=== PATIENT | female | born 1950 | race Caucasian/White ===

== ENCOUNTER → 2016-11-22 | Outpatient (CLI) | payer OTHER, MEDICARE | LOC: FIMAGING 07:44 | PROVIDERS: ATTEND Family Medicine | DX: Z12.31 Encounter for screening mammogram for malignant neoplasm of breast (principal) | CPT/HCPCS: G0202 ==

== ENCOUNTER → 2017-01-03 | Outpatient (CLI) | payer OTHER, MEDICARE | LOC: BHFA 11:00 | PROVIDERS: ATTEND Internal Medicine Interventional Cardiology | DX: R00.1 Bradycardia, unspecified (principal); E78.00 Pure hypercholesterolemia, unspecified ==

== ENCOUNTER → 2017-11-30 | Outpatient (CLI) | payer OTHER, MEDICARE | LOC: GIMAGING 11:20 | PROVIDERS: ATTEND Family Medicine | DX: M79.671 Pain in right foot (principal) | CPT/HCPCS: 73630-PO ==

== ENCOUNTER 2017-12-27 14:18 | Emergency (ER) | payer OTHER, MEDICARE ==
[2017-12-27 15:56] LABS: PLATELET COUNT 236 10^3/uL (150-400)
[2017-12-27 16:06] LABS: PROTIME(PATIENT) 24.9 SEC (12.0-15.0)
[2017-12-27 16:07] LABS: INR 2.25 (0.83-1.16)
--- NOTE | 2017-12-27 16:40 | EDPHY ---
H & P Stated Complaint: multiple--cooking pickled jalepenos 2 days ago-bilat hand burning resolved, Time Seen by Provider: 12/27/17 14:56 HPI/ROS: Chief complaint: Burning sensation on her hands, headache History of present illness: This is a 67-year-old female who presents to the emergency department multiple complaints. Her initial complaint is burning sensation to her hands. She states she was cooking with jalapeno year was 2 days ago. The burning sensation in her hands developed while cooking with ease. Sensation is been slowly improving but not fully resolved. She also states over the last day she has developed a mild headache to the right back side of her head. She describes a throbbing headache. She is wondering if it is from allergies affecting her ears. He has had similar headaches in the past but never this intense. She denies other potential precipitating factors. She denies alleviating factors. She denies associated signs or symptoms including no fevers, no cold symptoms, no trauma, no weakness or paralysis, no bowel or bladder dysfunction. Review of systems: A 10 point review of systems was obtained and other than described above was negative - Personal History Tetanus Vaccine Date: 2011 - Medical/Surgical History Hx Asthma: No Hx Chronic Respiratory Disease: No Hx Diabetes: No Hx Cardiac Disease: No Hx Renal Disease: No Hx Cirrhosis: No Hx Alcoholism: No Hx HIV/AIDS: No Hx Splenectomy or Spleen Trauma: No Other PMH: factor 5 clotting disorder/ hyst/colitis/hyperlipids/htn/ - Social History Smoking Status: Never smoked - Physical Exam Exam: General Appearance: Alert, nontoxic, easily conversant with me. Eyes: Pupils equal and round no pallor or injection. EOM intact. ENT, Mouth: Tympanic membranes, external auditory canals, external ears and surrounding soft tissue including over the mastoids are unremarkable. Nasopharynx is not injected. There is no rhinorrhea. Oropharynx is not injected. There is no edema. There is no exudate. There is no asymmetry. The uvula is midline. No elevation of the tongue. There is no hoarseness, no drooling, no trismus, no stridor. Respiratory: There are no retractions, lungs are clear to auscultation. Cardiovascular: Regular rate and rhythm. Gastrointestinal: Abdomen is soft and nontender, no masses, bowel sounds normal. Neurological: Alert and oriented x4. Cranial nerves 2-12 grossly intact. Strength and sensation intact and symmetrical. Cerebellar testing intact using finger to nose. Patient is ambulating without difficulty. She has good balance. Skin: Warm and dry, no rashes. Musculoskeletal: Neck is supple nontender. Extremities are symmetrical, full range of motion. Psychiatric: Patient is oriented X 3, there is no agitation. Constitutional: Initial Vital Signs Temperature (C) 36.5 C 12/27/17 14:26 Heart Rate 81 12/27/17 14:26 Respiratory Rate 18 12/27/17 14:26 Blood Pressure 138/86 H 12/27/17 14:26 O2 Sat (%) 98 12/27/17 14:26 O2 Delivery Mode Room Air Allergies/Adverse Reactions: latex Allergy (Verified 04/28/12 12:45) Home Medications: Medication Instructions Recorded Ambien 04/28/12 Bentyl 04/28/12 Cymbalta 04/28/12 Dexalant 04/28/12 Spirinolactone 04/28/12 Cpap 09/14/14 GABAPENTIN 09/14/14 VAGIFEM 09/14/14 Coumadin 12/27/17 Medical Decision Making - Diagnostics Imaging Results: Imaging Impressions Head CT 12/27/17 15:12 Impression: 1. No acute intracranial hemorrhage, mass or explanation for right-sided headache. 2. Minimal atrophy and minimal left maxillary sinus disease. Findings discussed with Emergency Department physician child center assistant, GERRI Colvin on 12/27/2017, 15:35. Imaging: Discussed imaging studies w/ call center receptionist Radiologist ED Course/Re-evaluation: Patient is discussed with my secondary supervising physician Dr. Ti Pablo. Patient presents to the emergency department with primary complaint of burning sensation to her hands that has been going on for the last 2 days since cooking with jalaYoukuos. These symptoms have nearly resolved. She subsequently described a mild headache. Blood studies obtained and unremarkable , she is therapeutic on her Coumadin with an INR of 2.25. Given the use of Coumadin a CT scan of the head was obtained negative. I do not appreciate red flag risk factors for her headache, the headache was not sudden in onset, it is not the worst headache of her life, she has had similar headaches in the past, she has a nonfocal neurologic exam. I discussed pursuing further evaluation including an MRI this evening, she has declined. She is comfortable going home. She will follow up with her primary care doctor next week. Home care is discussed. Strict return precautions are given. The patient voiced understanding and agreement with plan. Differential Diagnosis: Included but not limited to contact ear 10 from work with jalapeno nose, middle ear dysfunction, musculoskeletal pain, intracranial bleed given history of Coumadin use, CVA - Data Points Laboratory Results: Laboratory Results 12/27/17 15:35 12/27/17 15:35 12/27/17 12/27/17 12/27/17 15:35 15:35 15:35 WBC 8.15 10^3/uL 10^3/uL (3.80-9.50) RBC 4.72 10^6/uL 10^6/uL (4.18-5.33) Hgb 14.6 g/dL g/dL (12.6-16.3) Hct 43.0 % % (38.0-47.0) MCV 91.1 fL fL (81.5-99.8) MCH 30.9 pg pg (27.9-34.1) MCHC 34.0 g/dL g/dL (32.4-36.7) RDW 13.6 % % (11.5-15.2) Plt Count 236 10^3/uL 10^3/uL (150-400) MPV 8.9 fL fL (8.7-11.7) Neut % (Auto) 55.8 % % (39.3-74.2) Lymph % (Auto) 31.8 % % (15.0-45.0) [place] % (Auto) 5.5 % % (4.5-13.0) Eos % (Auto) 6.5 % % (0.6-7.6) Baso % (Auto) 0.2 % L % (0.3-1.7) Nucleat RBC Rel Count 0.0 % % (0.0-0.2) Absolute Neuts (auto) 4.54 10^3/uL 10^3/uL (1.70-6.50) Absolute Lymphs (auto) 2.59 10^3/uL 10^3/uL (1.00-3.00) Absolute Monos (auto) 0.45 10^3/uL 10^3/uL (0.30-0.80) Absolute Eos (auto) 0.53 10^3/uL H 10^3/uL (0.03-0.40) Absolute Basos (auto) 0.02 10^3/uL 10^3/uL (0.02-0.10) Absolute Nucleated RBC 0.00 10^3/uL 10^3/uL (0-0.01) Immature Gran % 0.2 % % (0.0-1.1) Immature Gran # 0.02 10^3/uL 10^3/uL (0.00-0.10) PT 24.9 SEC H SEC (12.0-15.0) INR 2.25 H (0.83-1.16) Sodium 140 mEq/L mEq/L (135-145) Potassium 4.3 mEq/L mEq/L (3.3-5.0) Chloride 100 mEq/L mEq/L (97-110) Carbon Dioxide 29 mEq/l mEq/l (22-31) Anion Gap 11 mEq/L mEq/L (8-16) BUN 26 mg/dL H mg/dL (7-23) Creatinine 1.0 mg/dL mg/dL (0.6-1.0) Estimated GFR 55 Glucose 90 mg/dL mg/dL (70-100) Calcium 10.1 mg/dL mg/dL (8.5-10.4) Departure - Departure Disposition: Home, Routine, Self-Care Clinical Impression: Headache Qualifiers: Headache type: unspecified Headache chronicity pattern: acute headache Intractability: not intractable Qualified Code(s): R51 - Headache Condition: Good Instructions: Acute Headache (ED) Additional Instructions: Follow-up with your primary care doctor on Saturday for recheck Your INR was therapeutic at 2.25 If symptoms worsen or new symptoms develop return to the emergency room immediately for recheck Referrals: Kyree Guerra MD [Primary Care Provider] - As per Instructions
[2017-12-27 16:53] VITALS: BP 132/52
== END 2017-12-27 16:53 | disposition home or self-care (01) ==
DX: R51 Headache (principal); R20.8 Other disturbances of skin sensation

== ENCOUNTER 2018-02-28 15:00 | Observation (INO) | payer OTHER, MEDICARE ==
[2018-03-07] MEDS ORDERED: BUPIVACAINE 0.5% 30 ML SDV ONE (09:06)
[2018-03-07] MEDS ORDERED: BUPIVACAINE 0.25% 30 ML SDV ONE (09:06)
[2018-03-07] MEDS ORDERED: EPINEPHrine 1 MG/ML INJ ONE (09:07)
[2018-03-07] MEDS ORDERED: ceFAZolin 2 GM/DEXTROSE 100 ML IV ONE (09:15)
[2018-03-07] MEDS ORDERED: LIDOCAINE 1% 2 ML INJ ID PRN (09:16)
[2018-03-07] MEDS ORDERED: LR 1,000 ML IV ONE (09:16)
[2018-03-07] MEDS ORDERED: MIDAZOLAM 2 MG/2 ML VIAL IVP ONE ×2 (09:20→09:22)
[2018-03-07] MEDS ORDERED: fentaNYL 100 MCG/2 ML INJ IVP ONE (09:20)
--- NOTE | 2018-03-07 09:21 | PDANEPAE ---
ANE History of Present Illness left foot pain ANE Past Medical History - Cardiovascular History Hx Hypertension: Yes Hx Arrhythmias: No Hx Chest Pain: No Hx Coronary Artery / Peripheral Vascular Disease: No Hx CHF / Valvular Disease: No Hx Palpitations: No Cardiovascular History Comment: Hx of DVT r/t clotting disorder. Hx of bradycardia - Pulmonary History Hx COPD: No Hx Asthma/Reactive Airway Disease: Yes Hx Recent Upper Respiratory Infection: No Hx Oxygen in Use at Home: Yes O2 in Use at Home (L/minute): 2L/NC at noc Hx Sleep Apnea: Yes Sleep Apnea Screening Result - Last Documented: Positive Pulmonary History Comment: PABLO +, uses Cpap w/O2. hx asthma, environmental induced - Neurologic History Hx Cerebrovascular Accident: No Hx Seizures: No Hx Dementia: No Neurologic History Comment: gets dizzy easily. L2-3 cyst - Endocrine History Hx Diabetes: Yes Hypothyroid: No Obesity: severe Endocrine History Comment: pre-diabetic - Renal History Hx Renal Disorders: No - Liver History Hx Hepatic Disorders: No - Neurological & Psychiatric Hx Hx Neurological and Psychiatric Disorders: Yes Neurological / Psychiatric History Comment: situational depression in the past - Cancer History Hx Cancer: No Cancer History Comment: hx of pre-cancerous polyps in colon and stomach - Congenital Disorder History Hx Congenital Disorders: Yes Congenital History Comment: Factor V Leiden - chronic coumadin - GI History Hx Gastrointestinal Disorders: Yes Gastrointestinal History Comment: GERD. Hx colitis - Other Health History Other Health History: wears glasses. 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 arthritis - Chronic Pain History Chronic Pain: Yes (back pain, hips, neck) - Surgical History Prior Surgeries: hysterectomy. bladder repair after was nicked during hysterectomy. small bowel resection. tonsillectomy ANE Review of Systems Review of Systems: - Exercise capacity METS (RN): 3 METS ANE Patient History - Allergies Allergies/Adverse Reactions: latex Allergy (Severe, Verified 02/27/18 20:14) Anaphylaxis tramadol Allergy (Verified 02/27/18 16:08) hives, itching - Home Medications Home Medications: Albuterol [Proventil Inhaler HFA (*)] 1 - 2 puffs IH Q4H PRN 02/27/18 [Last Taken 2 Months Ago ~01/05/18] Amitriptyline HCl [Elavil 10 mg (*)] 10 mg PO HS 02/27/18 [Last Taken 1 Day Ago ~03/06/18] Dexlansoprazole [Dexilant] 60 mg PO DAILY 02/27/18 [Last Taken 03/07/18] Estradiol [VAGIFEM] 10 mcg VG TUSA 02/27/18 [Last Taken 1 Week Ago ~02/28/18] Gabapentin [Neurontin 300 MG (*)] 300 mg PO BID PRN 02/27/18 [Last Taken 1 Day Ago ~03/06/18] Gabapentin [Neurontin 300 MG (*)] 600 mg PO HS 02/27/18 [Last Taken 2 Days Ago ~ 03/05/18] Herbals/Supplements -Info Only 1 ea PO DAILY 02/27/18 [Last Taken 1 Week Ago ~] Lisinopril/Hctz 20/12.5MG [Zestoretic/Prinzide 20/12.5MG (*)] 1 ea PO DAILY [Last Taken 2 Days Ago ~03/05/18] Montelukast Sodium [Singulair 10 mg (*)] 10 mg PO DAILY@1800 02/27/18 [Last Taken 1 Day Ago ~03/06/18] Spironolactone [Aldactone 25 MG (*)] 25 mg PO BID 02/27/18 [Last Taken 1 Day Ago ~03/06/18] Warfarin Sodium [Coumadin 5MG (*)] 2.5 mg PO SUMOTUTHFR@16 02/27/18 [Last Taken 02/28/18] Warfarin Sodium [Coumadin 5MG (*)] 5 mg PO WESA@16 02/27/18 [Last Taken 03/01/18 ] diphenhydrAMINE [Benadryl 25 MG (*)] 25 mg PO DAILY PRN 02/27/18 [Last Taken 1 Week Ago ~02/28/18] metFORMIN HCL [Glucophage 500 mg (*)] 500 mg PO BIDMEAL 02/27/18 [Last Taken 1 Day Ago ~03/06/18] Acetaminophen [Tylenol ES 500 mg (*)] 500 - 1,000 mg PO BID 02/28/18 [Last Taken 1 Day Ago ~03/06/18] Acetaminophen [Tylenol ES 500 mg (*)] 500 mg PO BID PRN 02/28/18 [Last Taken 1 Day Ago ~03/06/18] - Smoking Hx Smoking Status: Former smoker - Family Anes Hx Family Hx Anesthesia Complications: none ANE Labs/Vital Signs - Vital Signs Height: 157.48 cm Weight: 100.698 kg ANE Physical Exam - Airway Neck exam: FROM Mallampati Score: Class 2 Mouth exam: normal dental/mouth exam - Pulmonary Pulmonary: no respiratory distress - Cardiovascular Cardiovascular: regular rate and rhythym - ASA Status ASA Status: III ANE Anesthesia Plan Anesthesia Plan: general endotracheal anesthesia Regional Anesthesia: single shot NB (Plan for GA with popliteal nerve block catheter and single shot saphenous block), continuous NB
[2018-03-07] MEDS ORDERED: fentaNYL 100 MCG/2 ML INJ ONE (09:26)
[2018-03-07] MEDS ORDERED: PROPOFOL 200 MG/20 ML VIAL ONE (09:26)
[2018-03-07] MEDS ORDERED: ROCURONIUM 50 MG/5 ML VIAL ONE (09:27)
[2018-03-07] MEDS ORDERED: LIDOCAINE 2% 5 ML SDV ONE (09:28)
[2018-03-07] MEDS ORDERED: ALBUTEROL 60 PUFFS/8 GM MDI IH PRN (09:47)
[2018-03-07] MEDS ORDERED: diphenhydrAMINE 25 MG CAP PO PRN (09:47)
[2018-03-07] MEDS ORDERED: ROPIVACAINE HCL 150 MG/30 ML INJ ONE ×2 (09:47→13:12)
--- NOTE | 2018-03-07 09:47 | PDHPUP ---
History & Physical Update H&P update statement: This history and physical update is based on an assessment of the patient which was completed after admission or registration (within 24 hours), but prior to the surgery/procedure. H&P update: H&P reviewed & patient examined, no change in patient's condition since H&P completed
[2018-03-07 09:52] LABS: INR 1.14 (0.83-1.16); PROTIME(PATIENT) 14.8 SEC (12.0-15.0)
[2018-03-07] MEDS ORDERED: HYDROmorphONE/DILAUDID 2 MG/ML INJ ONE ×2 (10:50→13:31)
[2018-03-07] MEDS ORDERED: ONDANSETRON 4 MG/2 ML VIAL ONE (10:53)
[2018-03-07] MEDS ORDERED: DEXAMETHASONE 4 MG/ML VIAL ONE ×2 (10:53)
[2018-03-07] MEDS ORDERED: ESMOLOL HCL 100 MG/10 ML VIAL IV ONE (12:25)
--- NOTE | 2018-03-07 12:55 | POSTOPPROG ---
Post Op Note Date of Operation: 03/07/18 Surgeon: Saravanan Bob Machine Cell Tuber: uDy Anesthesia: GET(General Endotracheal) Pre-op Diagnosis: L posterior tibial tendonitis Post-op Diagnosis: same Indication: above Procedure: L ankle marcus, beena, berto, fdl transfer Inf/Abcess present in the surg proc area at time of surgery?: No EBL: Minimal
[2018-03-07] MEDS ORDERED: ONDANSETRON 4 MG/2 ML VIAL IVP PRN (12:56)
[2018-03-07] MEDS ORDERED: HYDROmorphONE/DILAUDID 1 MG/ML INJ IVP PRN (12:56)
[2018-03-07] MEDS ORDERED: HYDROCODONE/APAP 5/325 TAB PO PRN (13:41)
[2018-03-07] MEDS ORDERED: METOCLOPRAMIDE 10 MG/2 ML VIAL IVP PRN (13:41)
[2018-03-07] MEDS ORDERED: MEPERIDINE 25 MG/0.5 ML AMP IVP PRN (13:41)
[2018-03-07] MEDS ORDERED: LABETALOL HCL 5 MG/ML 20 ML MDV IVP PRN (13:41)
[2018-03-07] MEDS ORDERED: NALOXONE HCL 0.4 MG/ML INJ IVP PRN (13:41)
[2018-03-07] MEDS ORDERED: HYDROmorphONE/DILAUDID 2 MG/ML INJ IVP PRN (13:41)
[2018-03-07] MEDS ORDERED: LR 500 ML IV PRN (13:41)
--- NOTE | 2018-03-07 13:44 | POSTANESTH ---
Post Anesthetic Evaluation Cardiovascular Status: Normal, Stable Respiratory Status: Normal, Stable Level of Consciousness/Mental Status: Can Participate in Eval Pain Control: Adequate, Prn Tx Ordered (Patient c/o medial ankle pain. Rescue adductor canal block performed in PACU with 15 ml 0.5% Ropivicaine injected. No complications) Nausea/Vomiting Control: Adequate, Prn Tx Ordered Complications Possibly Related to Anesthesia: None Noted
[2018-03-07] MEDS: ROPIVACAINE 0.2% 1,100 MG in PUMP SET 1 EA NB SCH (14:19)
[2018-03-07] MEDS: WARFARIN SODIUM 5 MG TAB PO SCH (17:00)
[2018-03-07] MEDS: oxyCODONE IR 5 MG TAB PO PRN ×2 (17:02→23:21)
[2018-03-07] MEDS: MONTELUKAST SODIUM 10 MG TAB PO SCH (18:17)
[2018-03-07] MEDS: ceFAZolin 2 GM/DEXTROSE 100 ML IV SCH (18:18)
[2018-03-07] MEDS: metFORMIN HCL 500 MG TAB PO SCH (18:18)
[2018-03-07] MEDS: SPIRONOLACTONE 25 MG TAB PO SCH (20:21)
[2018-03-07] MEDS: AMITRIPTYLINE HCL 10 MG TAB PO SCH (20:22)
[2018-03-07] MEDS: GABAPENTIN 300 MG CAP PO SCH (20:22)
--- NOTE | 2018-03-07 20:51 | GOP ---
DATE OF OPERATION: 03/07/2018 SURGEON: Saravanan Bob MD WOOD HANDLER: Jorge Gordillo SA. PREOPERATIVE DIAGNOSIS: Left severe flatfoot deformity, posterior tibial tendinitis, peroneal tendinitis, ankle impingement, gastroc contracture. POSTOPERATIVE DIAGNOSIS: Left severe flatfoot deformity, posterior tibial tendinitis, peroneal tendinitis, ankle impingement, gastroc contracture. PROCEDURE PERFORMED: 1. Left ankle arthroscopy with extensive debridement and anterior bony decompression. 2. Left ankle Waqas procedure, gastrocnemius recession. 3. Left ankle peroneal debridement with debridement of peroneus brevis and peroneus brevis repair with tubularization. 4. Medial displacement calcaneal osteotomy. 5. Debridement of posterior tibial tendon. 6. Flexor digitorum longus tendon transfer. 7. Spring ligament repair. FINDINGS: SPECIMENS: None. ESTIMATED BLOOD LOSS: 5 mL. INDICATIONS: This is a female in significant pain and failed nonoperative treatment with the above diagnosis. We counseled risks and benefits of surgical intervention. We discussed risks of recurrence, infection, nerve injury, complications, nonunion, malunion, continued pain, need for bracing, and she would like to proceed. Informed consent was obtained after all questions were answered. DESCRIPTION OF PROCEDURE: She was marked preoperatively and taken to the operative suite, sterilely prepped and draped in normal fashion. Block had administered per Anesthesia, an indwelling popliteal block and sapheonous block was performed for postop pain control. She was given 2 g Ancef. Time-out was performed, verifying site, side, and location with agreement of the team. After exsanguination, tourniquet was put up to 300 mmHg. We insufflated the joint, and made a medial and lateral portal for the portals were establishedprotecting neurovascular structures. Significant synovitis in the ankle was debrided of the anterior ,medial, lateral, and posterior gutters. I then performed a bony decompression of the anterior ankle. We then made an incision over the calf and dissected down from the gastroc recession to the outer fascia layer of the gastroc musculature to give her more dorsiflexion. I then made an incision over the peroneal tendons. I dissected down to the peroneus longus was in good condition. Her brevis had a longitudinal tear and synovitis, which was debrided. I then debrided the peroneus brevis, then tubularized this with an 0 Vicryl repairing the peroneus brevis. I made an incision over the heel and dissected down to this. I cut this with a sagittal saw and displaced this medially, held this with a guidewire , checked this fluoroscopically, drilled and placed two 5.0 headless compression screws across this, completing the medial displacement calcaneal osteotomy. I then turned my attention medially and made a medial incision over the posterior tibial tendon, isolated this as it was extremely tendinotic and degenerative, and this was removed. I then dissected and found the FDL, cut this distally and harvested the tendon, placed a FiberWire suture in this in a Krackow fashion. I then isolated the sustentaculum of the calcaneus. I isolated this with a guidewire, then I checked fluoroscopically, drilled, tapped , and then placed the swivel lock. I then isolated the entry point on the navicular, checked this with the guidewire, and then used a 5.5 reamer. I then pulled with the limbs of the internal brace to this in the tendon and then tensioned these separately, making sure to achieve good tension of the tendon and leave the internal braces back up. The biotenodesis screws were then selected, and this was placed and held all this into place well. The wounds were irrigated. Final images were taken. The spring ligament was reefed and sewed tighter to complete the spring ligament repair. Thoroughly irrigated this. Closed with 0 Vicryl, 2-0 Vicryl, 3-0 Quill, and Dermabond. She was taken to PACU in stable condition. IMPLANTS: Arthrex internal brace with spring ligament and two 5.0 headless compression screws for the MDCO and a biotenodesis screw 6.5 mm. COMPLICATIONS: None. DRAINS: None. CONDITION: Stable. /[id number]/MODL MTDD
[2018-03-08] MEDS: ceFAZolin 2 GM/DEXTROSE 100 ML IV SCH (03:55)
[2018-03-08] MEDS: GABAPENTIN 300 MG CAP PO PRN (03:59)
[2018-03-08] MEDS: oxyCODONE IR 5 MG TAB PO PRN ×5 (03:59→23:00)
--- NOTE | 2018-03-08 08:04 | PDPAINCON ---
Pain Management Consultation Patient referred by : Paulino - Subjective Pain at rest (/10): 4 Pain is: under control Side effects include: No drowsy, No itchiness, No nausea, No nausea/vomiting Activity: able to ambulate, participating in PT - Objective Technique: continuous peripheral nerve block Site: sciatic Continuous infusion: ropivicaine Catheter site: clean, dry, intact Sensory and motor exam: consistent with block Vital signs: stable - Assessment/Plan Assessment/Plan: pain well-controlled, continue current mgmt Additional comments: POD# 1 s/p left ankle surgery. Indwelling popliteal sciatic catheter running 0.2% ropivacaine at 6ml/hr plus adductor canal block done yesterday. Patient comfortable overall, states she can feel some throbbing pain starting to come on in the anteromedial aspect of the ankle. Taking PO oxycodone. About to participate in PT. Expects d/c home today or tomorrow.
[2018-03-08] MEDS: SPIRONOLACTONE 25 MG TAB PO SCH ×2 (08:13→20:55)
[2018-03-08] MEDS: metFORMIN HCL 500 MG TAB PO SCH ×2 (08:13→17:37)
[2018-03-08] MEDS: LISINOPRIL/HCTZ 20/12.5MG 1 EA TAB PO SCH (08:13)
[2018-03-08] MEDS: ENOXAPARIN 100 MG/ML SYR SC SCH ×2 (08:13→20:55)
[2018-03-08] MEDS: FAMOTIDINE 20 MG TAB PO SCH (08:13)
--- NOTE | 2018-03-08 09:47 | SOAPPROG ---
SOAP Progress Note Assessment/Plan: Assessment: L flat foot reconstruction 03/07 Plan: Non wt bearing left leg ice elevate in splint, keep dry PTOT due to her lack of mobility and pain control she is unable to discharge at this time. She need admission to the hospital and likely placement in a skilled rehab facility 03/08/18 09:45 Subjective: pain mostly in saphenous distribution Objective: Vital Signs Temp Pulse Resp BP Pulse Ox 36.8 C 69 14 115/63 96 03/08/18 07:53 03/08/18 07:53 03/08/18 07:53 03/08/18 08:13 03/08/18 07:53 03/07/18 03/08/18 03/09/18 05:59 05:59 04:59 Intake Total 2650 Output Total 250 Balance 2400 PT 14.8 SEC (12.0-15.0) 03/07/18 09:34 INR 1.14 (0.83-1.16) 03/07/18 09:34 splint cdi toes numb ICD10 Worksheet Patient Problems: Problems Problem Status Onset Posterior tibial tendinitis of left leg Acute - ICD10 Problem Qualifiers (1) Posterior tibial tendinitis of left leg
--- NOTE | 2018-03-08 11:02 | ASMTCMCOM ---
CM Note CM Note Notes: Patient is POD #1 L flat foot reconstruction. She normally is independent and lives w . However, she is to be NWB for 6 weeks and thus needs SNF. Her daughter (in town from OR until Saturday) will visit [facility] and [facility]. I have sent referrals to both. They will let us know which facility they decide on. Case management will follow. Date Signed: 03/08/2018 11:02 AM Electronically Signed By:Va Montalvo RN
[2018-03-08] MEDS: ACETAMINOPHEN 325 MG TAB PO PRN (14:40)
[2018-03-08] MEDS ORDERED: WARFARIN SODIUM 5 MG TAB PO SCH (16:00)
[2018-03-08] MEDS: MONTELUKAST SODIUM 10 MG TAB PO SCH (17:37)
[2018-03-08] MEDS: AMITRIPTYLINE HCL 10 MG TAB PO SCH (20:54)
[2018-03-08] MEDS: GABAPENTIN 300 MG CAP PO SCH (20:54)
[2018-03-09] MEDS: GABAPENTIN 300 MG CAP PO PRN ×2 (01:02→13:36)
[2018-03-09] MEDS: ACETAMINOPHEN 325 MG TAB PO PRN ×4 (01:06→16:30)
[2018-03-09] MEDS: oxyCODONE IR 5 MG TAB PO PRN ×5 (02:01→20:34)
[2018-03-09 05:06] LABS: INR 1.39 (0.83-1.16); PROTIME(PATIENT) 17.2 SEC (12.0-15.0)
[2018-03-09] MEDS: LISINOPRIL/HCTZ 20/12.5MG 1 EA TAB PO SCH (07:23)
[2018-03-09] MEDS: SPIRONOLACTONE 25 MG TAB PO SCH ×2 (07:24→20:34)
[2018-03-09] MEDS: ENOXAPARIN 100 MG/ML SYR SC SCH ×2 (07:24→20:33)
[2018-03-09] MEDS: metFORMIN HCL 500 MG TAB PO SCH ×2 (07:24→17:58)
[2018-03-09] MEDS: FAMOTIDINE 20 MG TAB PO SCH (07:24)
--- NOTE | 2018-03-09 10:44 | SOAPPROG ---
SOAP Progress Note Assessment/Plan: Assessment: L flat foot reconstruction 03/07 Plan: Non wt bearing left leg ice elevate in splint, keep dry PTOT due to her lack of mobility and pain control she is unable to discharge at this time. She need admission to the hospital and likely placement in a skilled rehab facility after her pain is under control. She is non wt bearing for 6 weeks and unable to comply with non wt bearing at home 03/08/18 09:45 03/09/18 10:43 Subjective: pain in medial ankle/hindfoot Objective: Vital Signs Temp Pulse Resp BP Pulse Ox 36.9 C 88 12 111/84 H 95 03/09/18 07:48 03/09/18 07:48 03/09/18 07:48 03/09/18 07:48 03/09/18 07:48 03/08/18 03/09/18 03/10/18 06:59 05:59 05:59 Intake Total Output Total Balance PT 17.2 SEC (12.0-15.0) H 03/09/18 04:20 INR 1.39 (0.83-1.16) H 03/09/18 04:20 splint cdi good cap refill ICD10 Worksheet Patient Problems: Problems Problem Status Onset Posterior tibial tendinitis of left leg Acute - ICD10 Problem Qualifiers (1) Posterior tibial tendinitis of left leg
--- NOTE | 2018-03-09 11:10 | PDPAINCON ---
Pain Management Consultation Patient referred by : Paulino - Subjective Pain is: under control Activity: able to ambulate, participating in PT - Objective Technique: continuous peripheral nerve block Catheter site: clean, dry, intact, no erythema/edema/exudate Sensory and motor exam: consistent with block Vital signs: stable - Assessment/Plan Additional comments: POD#2 s/p left ankle surgery. Indwelling popliteal sciatic catheter running 0.2% ropivacaine increased this AM from 6 to 8ml/hr. Reports she was feeling great until the middle of the night after a day of extensive PT. She declined an oxycodone before bed, which may be the reason she had increased pain at night. Reports pain both in the heel as well as medial aspect of foot. It was explained that increasing the rate of the infusion should help with heel pain, but will not cover the medial foot pain. She expressed understanding.
--- NOTE | 2018-03-09 15:37 | ASMTCMCOM ---
CM Note CM Note Notes: Daughter visited [facility] and they have decided in [facility]. Notified Adeline at [facility]. Date Signed: 03/09/2018 03:36 PM Electronically Signed By:Yandy Smith LCSW
[2018-03-09] MEDS: WARFARIN SODIUM 5 MG TAB PO SCH (16:30)
[2018-03-09] MEDS: MONTELUKAST SODIUM 10 MG TAB PO SCH (17:58)
[2018-03-09] MEDS: AMITRIPTYLINE HCL 10 MG TAB PO SCH (20:34)
[2018-03-09] MEDS: GABAPENTIN 300 MG CAP PO SCH (20:34)
[2018-03-10] MEDS: oxyCODONE IR 5 MG TAB PO PRN ×5 (00:29→20:08)
[2018-03-10] MEDS: ACETAMINOPHEN 325 MG TAB PO PRN ×3 (03:14→17:56)
[2018-03-10] MEDS: GABAPENTIN 300 MG CAP PO PRN (03:15)
[2018-03-10 05:48] LABS: INR 1.58 (0.83-1.16)
[2018-03-10] MEDS ORDERED: LACTULOSE 20 GM/30 ML UDCUP PO PRN (08:30)
[2018-03-10] MEDS ORDERED: BISACODYL 10 MG SUPP PR PRN (08:30)
--- NOTE | 2018-03-10 08:30 | SOAPPROG ---
SOAP Progress Note Assessment/Plan: Assessment: L flat foot reconstruction 03/07 Plan: Non wt bearing left leg ice elevate in splint, keep dry PTOT due to her lack of mobility and pain control she is unable to discharge at this time. She need admission to the hospital and likely placement in a skilled rehab facility after her pain is under control. She is non wt bearing for 6 weeks and unable to comply with non wt bearing at home inr is rising but still subtheurapuetic, cont lovenox 03/08/18 09:45 03/09/18 10:43 03/10/18 08:29 Subjective: pain tolerable Objective: Vital Signs Temp Pulse Resp BP Pulse Ox 36.8 C 90 16 102/77 91 L 03/10/18 07:31 03/10/18 07:31 03/10/18 07:31 03/10/18 07:31 03/10/18 07:31 03/09/18 03/10/18 03/11/18 05:59 05:59 05:59 Intake Total 1000 Output Total 350 Balance 650 PT 19.0 SEC (12.0-15.0) H 03/10/18 04:35 INR 1.58 (0.83-1.16) H 03/10/18 04:35 splint cdi ICD10 Worksheet Patient Problems: Problems Problem Status Onset Posterior tibial tendinitis of left leg Acute - ICD10 Problem Qualifiers (1) Posterior tibial tendinitis of left leg
--- NOTE | 2018-03-10 08:35 | PDIAF ---
- Diagnosis Code Status: Full Code - Medication Management Discharge Medications: electronically signed and located in the Home Medication List. - Orders Services needed: Registered Nurse, Certified Debt Collection Specialist, Physical Therapy, Occupational Therapy Diet Recommendation: no restrictions on diet Diet Texture: Regular Texture Diet Wound Care Instructions: stay in splint, keep dry Additional Instructions: Non wt bearing left leg ice elevate in splint, keep dry - Labs/Radiology PT/INR Date: 03/11/18 (daily until inr above 2.0) - Follow Up Care Current Providers and Referrals: Kyree Guerra MD [Primary Care Provider] - Saravanan Bob MD [Medical Doctor] - follow up in 10 days
[2018-03-10] MEDS: SENNOSIDES/DOCUSATE SODIUM TAB PO SCH ×2 (08:52→20:08)
[2018-03-10] MEDS: POLYETHYLENE GLYCOL 3350 17 GM PKT PO PRN (08:52)
[2018-03-10] MEDS: MAGNESIUM HYDROXIDE 30 ML UDCUP PO PRN (08:52)
[2018-03-10] MEDS: LISINOPRIL/HCTZ 20/12.5MG 1 EA TAB PO SCH (08:53)
[2018-03-10] MEDS: metFORMIN HCL 500 MG TAB PO SCH ×2 (08:53→17:54)
[2018-03-10] MEDS: SPIRONOLACTONE 25 MG TAB PO SCH ×2 (08:53→20:08)
[2018-03-10] MEDS: ENOXAPARIN 100 MG/ML SYR SC SCH ×2 (08:54→20:09)
[2018-03-10] MEDS: FAMOTIDINE 20 MG TAB PO SCH (08:54)
--- NOTE | 2018-03-10 09:55 | ASDISCHSUM ---
Discharge Information Plan Status:SNF Medically Cleared to Leave:03/09/2018 Discharge Date:03/11/2018 02:26 PM CM D/C Disposition:Fdc Facility ADT D/C Disposition:Fdc Facility Projected Discharge Date:03/10/2018 11:00 AM Transportation at D/C:Wheelchair Van Discharge Delay Reason: Follow-Up Date:03/10/2018 11:00 AM Discharge Slot: Final Diagnosis: Placement Information Referral Type:*Chcf/SNF Referral ID:[id number] Provider Name:[facility] Address 1:[address] Address 2: City:[place] Selection Factors: State:[place] Patient Contact Information Contact Name:ELI Relationship: Address:[address] Work Phone: [facility]:PEACH [place]CHARD Alternate Phone: State/Zip Code:[place] [address] Email: Financial Information Financial Class:Medicare Primary Plan Desc:MEDICARE OUTPATIENT Primary Plan Number:[id number] Secondary Plan Desc:[employer]/MDR SUPPLEMENT Secondary Plan Number:[id number] Assessment Information LACE LACE Length of stay for Answers: 3 days current admission Acuity / Level of Answers: Yes Care: Did the patient have an inpatient admission? # of Emergency department Answers: 1-2 visits in the last 6 months Score: 7 Date Signed: 03/10/2018 09:54 AM Electronically Signed By:ELVIA Robles [facility] RONAL Progress Note CM Gutierrez CM Note Notes: Patient is POD #1 L flat foot reconstruction. She normally is independent and lives w . However, she is to be NWB for 6 weeks and thus needs SNF. Her daughter (in town from OR until Saturday) will [facility] I have sent referrals to both. They will let us know which facility they decide on. Case management will follow. Date Signed: 03/08/2018 11:02 AM Electronically Signed By:Va Montalvo RN [facility] CM Progress Note CM Note CM Note Notes: Daughter visited [facility] and [facility] and they have decided in [facility]. Notified Adeline at [facility]. Date Signed: 03/09/2018 03:36 PM Electronically Signed By:Yandy Smith LCSW [facility] CM Progress Note CM Note CM Note Notes: Pt medically stable for d/c to [facility]. Pt requests van which is arranged by [facility]. [facility]. [facility] White called report. Date Signed: 03/11/2018 11:51 AM Electronically Signed By:ELVIA Pringle Intervention Information Intervention Type:*REI-Signed Date of Service:03/11/2018 10:15 AM Patient Type:Observation Staff Member:Antonette Celeste Hours: Discipline: Severity: Comment:
[2018-03-10] MEDS: ROPIVACAINE 0.2% 1,100 MG in PUMP SET 1 EA NB SCH (11:49)
--- NOTE | 2018-03-10 13:12 | PDPAINCON ---
Pain Management Consultation - Subjective Pain at rest (/10): 4 Pain with activity (/10): 8 Pain is: under control Side effects include: No drowsy, No itchiness Activity: out of bed with assistance, participating in PT - Objective Technique: continuous peripheral nerve block Site: sciatic Continuous infusion: ropivicaine Catheter site: clean, dry, intact, no erythema/edema/exudate Sensory and motor exam: consistent with block Vital signs: stable - Assessment/Plan Assessment/Plan: pain well-controlled, continue current mgmt Additional comments: POD3, Popliteal catheter. OnQ nearly exhausted, pt with improved pain control since infusion rate increase- will order an additional OnQ.
[2018-03-10] MEDS: WARFARIN SODIUM 5 MG TAB PO SCH (15:28)
[2018-03-10] MEDS: MONTELUKAST SODIUM 10 MG TAB PO SCH (17:54)
[2018-03-10] MEDS: GABAPENTIN 300 MG CAP PO SCH (20:08)
[2018-03-10] MEDS: AMITRIPTYLINE HCL 10 MG TAB PO SCH (20:08)
[2018-03-11] MEDS: oxyCODONE IR 5 MG TAB PO PRN ×4 (00:40→12:11)
[2018-03-11 05:50] LABS: INR 1.73 (0.83-1.16); PROTIME(PATIENT) 20.4 SEC (12.0-15.0)
[2018-03-11 07:53] VITALS: BP 123/71
[2018-03-11] MEDS: SPIRONOLACTONE 25 MG TAB PO SCH (08:15)
[2018-03-11] MEDS: FAMOTIDINE 20 MG TAB PO SCH (08:15)
[2018-03-11] MEDS: ENOXAPARIN 100 MG/ML SYR SC SCH (08:16)
[2018-03-11] MEDS: SENNOSIDES/DOCUSATE SODIUM TAB PO SCH (08:16)
[2018-03-11] MEDS: LISINOPRIL/HCTZ 20/12.5MG 1 EA TAB PO SCH (08:16)
[2018-03-11] MEDS: metFORMIN HCL 500 MG TAB PO SCH (08:16)
[2018-03-11] MEDS: ACETAMINOPHEN 325 MG TAB PO PRN (08:17)
[2018-03-11] MEDS: POLYETHYLENE GLYCOL 3350 17 GM PKT PO PRN (08:17)
--- NOTE | 2018-03-11 08:25 | SOAPPROG ---
SOAP Progress Note Assessment/Plan: Assessment: L flat foot reconstruction 03/07 Plan: Non wt bearing left leg ice elevate in splint, keep dry PTOT due to her lack of mobility and pain control she is unable to discharge at this time. She need admission to the hospital and likely placement in a skilled rehab facility after her pain is under control. She is non wt bearing for 6 weeks and unable to comply with non wt bearing at home inr is rising but still subtheurapuetic, cont lovenox 03/08/18 09:45 03/09/18 10:43 03/10/18 08:29 Subjective: pain in foot Objective: Vital Signs Temp Pulse Resp BP Pulse Ox 36.9 C 81 18 123/71 H 93 03/11/18 07:51 03/11/18 07:51 03/11/18 07:51 03/11/18 07:51 03/11/18 07:51 03/10/18 03/11/18 03/12/18 05:59 05:59 05:59 Intake Total 1000 1800 Output Total 350 Balance 650 1800 PT 20.4 SEC (12.0-15.0) H 03/11/18 05:00 INR 1.73 (0.83-1.16) H 03/11/18 05:00 splint cdi ICD10 Worksheet Patient Problems: Problems Problem Status Onset Posterior tibial tendinitis of left leg Acute - ICD10 Problem Qualifiers (1) Posterior tibial tendinitis of left leg
--- NOTE | 2018-03-11 08:26 | PDIAF ---
- Diagnosis Code Status: Full Code - Medication Management Discharge Medications: electronically signed and located in the Home Medication List. - Orders Services needed: Registered Nurse, Certified Social Media Marketing Specialist, Physical Therapy, Occupational Therapy Diet Recommendation: no restrictions on diet Diet Texture: Regular Texture Diet Wound Care Instructions: stay in splint, keep dry Additional Instructions: Non wt bearing left leg ice elevate in splint, keep dry - Labs/Radiology PT/INR Date: 03/12/18 (daily until inr above 2.0) - Follow Up Care Current Providers and Referrals: Kyree Guerra MD [Primary Care Provider] - Saravanan Bob MD [Medical Doctor] - follow up in 10 days
[2018-03-11] MEDS: MAGNESIUM HYDROXIDE 30 ML UDCUP PO PRN (08:41)
--- NOTE | 2018-03-11 11:51 | ASMTCMCOM ---
CM Note CM Note Notes: Pt medically stable for d/c to [facility]. Pt requests wc van which is arranged by [facility]. Orders sent in [employer]. [facility]IP[facility] White called report. Date Signed: 03/11/2018 11:51 AM Electronically Signed By:ELVIA Pringle
[2018-03-11] MEDS: GABAPENTIN 300 MG CAP PO PRN (12:13)
[2018-03-11] MEDS ORDERED: oxyCODONE IR 5 MG TAB PO ONE (12:30)
--- NOTE | 2018-03-11 14:25 | PDPAINCON ---
Pain Management Consultation - Subjective Pain at rest (/10): 3 Pain with activity (/10): 7 Pain is: low, well controlled Side effects include: No drowsy, No itchiness Activity: able to ambulate, out of bed with assistance, participating in PT - Objective Technique: continuous peripheral nerve block Site: sciatic Catheter site: clean, dry, intact, no erythema/edema/exudate Sensory and motor exam: consistent with block - Assessment/Plan Assessment/Plan: pain well-controlled, continue current mgmt Additional comments: HIREN tpo rehab today. Will continue with phone f/u.
== END 2018-03-11 14:26 ==
LOC: F3N 15:00 → UNDOADMOB 15:00 → F3N 03-07 08:38
PROVIDERS: ADMIT Orthopaedic Surgery; ATTEND Orthopaedic Surgery
PROC: 0MQR0ZZ Repair Left Ankle Bursa and Ligament, Open Approach (ICD-10-PCS; principal; 2018-03-07 10:00)
PROC: 0SBG4ZZ Excision of Left Ankle Joint, Percutaneous Endoscopic Approach (ICD-10-PCS; principal; 2018-03-07 10:00)
PROC: 0LSP0ZZ Reposition Left Lower Leg Tendon, Open Approach (ICD-10-PCS; principal; 2018-03-07 10:00)
PROC: 0LXP0ZZ Transfer Left Lower Leg Tendon, Open Approach (ICD-10-PCS; principal; 2018-03-07 10:00)
PROC: 0QHM04Z Insertion of Internal Fixation Device into Left Tarsal, Open Approach (ICD-10-PCS; principal; 2018-03-07 10:00)
DX: M21.42 Flat foot [pes planus] (acquired), left foot (principal); M76.822 Posterior tibial tendinitis, left leg; M76.72 Peroneal tendinitis, left leg; M25.872 Other specified joint disorders, left ankle and foot; M62.462 Contracture of muscle, left lower leg; G47.33 Obstructive sleep apnea (adult) (pediatric); K21.9 Gastro-esophageal reflux disease without esophagitis
CPT/HCPCS: 27687; 27691; 27695; 28300; 29898; 97116; 97162; 97165; 97530; 97535; C1713; G8978; G8979; G8987; G8988; J0690; J1100; J1170; J1650; J2250; J2405; J2704; J2795; J3010; J0171

== ENCOUNTER → 2018-09-08 | Outpatient (CLI) | payer OTHER, MEDICARE | LOC: FIMAGING 18:33 | PROVIDERS: ATTEND Family Medicine | DX: K62.5 Hemorrhage of anus and rectum (principal); R10.32 Left lower quadrant pain ==